=== PATIENT | male | born 2000 ===

== ENCOUNTER 2021-05-13 00:02 | Emergency (ER) | payer BC ==
[~2021-05-13] VITALS: Ht 172.7 cm; Wt 72.7 kg
[2021-05-13 00:20] VITALS: TEMP 100.5
[2021-05-13 00:50] LABS: HEMATOCRIT 47.1 % (36.0-47.0); HEMOGLOBIN 16.4 g/dl (12.5-16.1); MEAN CELL VOLUME 88 fl (80.0-95.0); MEAN CORPUSCULAR HEMOGLOBIN 31 pg (26.0-32.0); MEAN CORPUSCULAR HGB CONC 35 g/dl (33.0-37.0); MEAN PLATELET VOLUME 8.7 fl (7.4-10.4); PLATELET COUNT 227 K/mm3 (130-400); RED BLOOD COUNT 5.33 M/mm3 (4.20-5.60); REDCELL DISTRIBUTION WIDTH-CV 12.1 % (11.5-14.5)
[2021-05-13 01:06] LABS: MONOSCREEN POSITIVE
[2021-05-13 01:08] LABS: ALBUMIN 4.2 gm/dL (3.5-5.0); BILIRUBIN,TOTAL 0.6 mg/dL (0.2-1.2); CALCIUM 9.9 mg/dL (8.4-10.2); CREATININE, serum 1.25 mg/dL (0.72-1.25); POTASSIUM 3.9 mmol/L (3.5-4.5); TOTAL PROTEIN 9.1 gm/dL (6.2-8.1)
[2021-05-13 01:14] LABS: BAND 17 % (0-10); EOSINOPHIL 1 % (0-4); NEUTROPHILS 28 % (42.0-75.2)
[2021-05-13 01:15] LABS: PLATELET ESTIMATE NORMAL (NORMAL)
[2021-05-13 01:16] LABS: LYMPHOCYTE 47 % (20.0-51.0)
[2021-05-13 01:30] VITALS: BP 120/61; PULSE 88
== END 2021-05-13 01:35 | disposition home or self-care (01) ==
LOC: COL.ER 00:02
PROVIDERS: Emergency Medicine
DX: B27.90 Infectious mononucleosis, unspecified without complication (principal); D72.829 Elevated white blood cell count, unspecified; R74.01 Elevation of levels of liver transaminase levels
CPT/HCPCS: J1100; J1885